=== PATIENT | male | born 1955 | race Caucasian/White ===

== ENCOUNTER 2017-05-28 04:46 | Emergency (ER) | payer OTHER ==
[~2017-05-28] VITALS: Ht 165.1 cm; Wt 101.5 kg
[~2017-05-28 04:46] MED LIST: AMLO5TAB2 PO; ASPI81CH CHEW; FENO160T PO; LOVA40TA PO
[2017-05-28] MEDS ORDERED: IOHEXOL 350 MG/ML 10 ML VIAL (for RAD DIAG) IVCONTRAST ONE (04:47)
[2017-05-28 04:52] VITALS: BP 151/85; PULSE 65; RESP 24; TEMP 97.7; O2SAT 98
[2017-05-28] MEDS ORDERED: SODIUM CHLORIDE 0.9% FLUSH 10 ML FLUSH IV FLUSH PRN (05:30)
--- NOTE | 2017-05-28 05:35 | PD ---
HPI Chief Complaint: Abdominal Pain Time Seen by Provider: 05:27 Travel History International Travel<30 days: No Contact w/Intl Traveler<30days: No Traveled to known affect area: No History of Present Illness HPI 62-year-old male presents to the emergency department complaining of severe right-sided abdominal pain since 3 AM. Patient states that he did eat fried foods last evening. Patient states that he was diagnosed with a gallstone back in June 2016. Patient states she did follow up with her general surgeon who did an ultrasound no GALLSTONES were identified at that time. Patient rates pain as 8/10 intensity. Pain is nonradiating. Patient does not report nausea or vomiting. Patient denies chest pain or shortness of breath. PFSH Past Medical History Narrative Medical Arthritis lymphoma dyslipidemia CAD hypertension CABG appendectomy alcohol use; nursing notes reviewed Arthritis: Yes (RT ELBOW) Blood Disorders: No Heart Rhythm Problems: No Cancer: Yes (LYPHOMA) Cardiac Catheterization: No Cardiovascular Problems: Yes High Cholesterol: Yes Chest Pain: Yes Congestive Heart Failure: No Diabetes: No Diminished Hearing: No Endocrine: No Gastrointestinal Disorders: No Genitourinary: No Hypertension: Yes Immune Disorder: No Implanted Vascular Access Dvce: No Musculoskeletal: No Neurologic: No Psychiatric: No Reproductive: No Respiratory: No Immunizations Current: Yes ?: Not Past Surgical History Appendectomy: Yes Coronary Artery Bypass Graft: Yes Thoracic Surgery: Yes (HEART BYPASS) Other Surgery: Yes (APPENDECTOMY) Social History Alcohol Use: Yes (OCCASIONALLY) Tobacco Use: No Substance Use: No Allergies-Medications (Allergen,Severity, Reaction): Coded Allergies: acetaminophen (Unverified Adverse Reaction, Mild, 05/22/17) keeps him awake codeine (Unverified Adverse Reaction, Mild, 05/22/17) keeps him awake hydrocodone (Unverified Adverse Reaction, Mild, 05/22/17) keeps him awake Reported Meds & Prescriptions Reported Meds & Active Scripts Active Reported Aspirin 81 Mg Chew 81 Mg CHEW DAILY Fenofibrate 160 Mg Tab 160 Mg PO DAILY Amlodipine (Amlodipine Besylate) 5 Mg Tab 5 Mg PO DAILY Lovastatin 40 Mg Tab 40 Mg PO DAILY Review of Systems Except as stated in HPI: all other systems reviewed are Neg Physical Exam Narrative GENERAL: Well-developed well-nourished male in no respiratory distress in obvious discomfort moaning and rubbing his abdomen SKIN: Warm and dry. HEAD: Normocephalic. EYES: No scleral icterus. No injection or drainage. NECK: Supple, trachea midline. No JVD or lymphadenopathy. CARDIOVASCULAR: Regular rate and rhythm without murmurs, gallops, or rubs. RESPIRATORY: Breath sounds equal bilaterally. No accessory muscle use. GASTROINTESTINAL: Abdomen soft, right lower quadrant greater than right upper quadrant tenderness to palpation without guarding or rebound, nondistended. MUSCULOSKELETAL: No cyanosis, or edema. BACK: Nontender without obvious deformity. No CVA tenderness. Data Data Last Documented VS Vital Signs Date Time Temp Pulse Resp B/P (MAP) Pulse Ox O2 Delivery O2 Flow Rate FiO2 05/28/17 06:22 63 156/91 (112) 99 Room Air 05/28/17 06:00 18 05/28/17 04:52 97.7 Orders Orders Complete Blood Count With Diff (05/28/17 05:27) Comprehensive Metabolic Panel (05/28/17 05:27) Lipase (05/28/17 05:27) Urinalysis - C+S If Indicated (05/28/17 05:27) Ct Abd/Pel W Iv Contrast(Rout) (05/28/17 05:27) Iv Access Insert/Monitor (05/28/17 05:27) Ecg Monitoring (05/28/17 05:27) Oximetry (05/28/17 05:27) Sodium Chloride 0.9% Flush (Ns Flush) (05/28/17 05:30) Electrocardiogram (05/28/17 05:27) Hydromorphone Pf Inj (Dilaudid Pf Inj) (05/28/17 05:45) Ondansetron Inj (Zofran Inj) (05/28/17 05:45) Troponin I (05/28/17 06:04) Iohexol 350 Inj (Omnipaque 350 Inj) (05/28/17 04:47) Labs Laboratory Tests Test 05/28/17 06:00 05/28/17 06:40 White Blood Count 6.1 TH/MM3 Red Blood Count 5.14 MIL/MM3 Hemoglobin 14.6 GM/DL Hematocrit 44.2 % Mean Corpuscular Volume 86.0 FL Mean Corpuscular Hemoglobin 28.5 PG Mean Corpuscular Hemoglobin Concent 33.1 % Red Cell Distribution Width 13.4 % Platelet Count 198 TH/MM3 Mean Platelet Volume 8.4 FL Neutrophils (%) (Auto) 61.4 % Lymphocytes (%) (Auto) 25.5 % Monocytes (%) (Auto) 9.4 % Eosinophils (%) (Auto) 3.1 % Basophils (%) (Auto) 0.6 % Neutrophils # (Auto) 3.7 TH/MM3 Lymphocytes # (Auto) 1.6 TH/MM3 Monocytes # (Auto) 0.6 TH/MM3 Eosinophils # (Auto) 0.2 TH/MM3 Basophils # (Auto) 0.0 TH/MM3 CBC Comment DIFF FINAL Differential Comment Blood Urea Nitrogen 17 MG/DL Creatinine 1.30 MG/DL Random Glucose 141 MG/DL Total Protein 7.1 GM/DL Albumin 3.7 GM/DL Calcium Level 9.0 MG/DL Alkaline Phosphatase 76 U/L Aspartate Amino Transf (AST/SGOT) 39 U/L Alanine Aminotransferase (ALT/SGPT) 55 U/L Total Bilirubin 0.6 MG/DL Sodium Level 141 MEQ/L Potassium Level 3.7 MEQ/L Chloride Level 107 MEQ/L Carbon Dioxide Level 25.5 MEQ/L Anion Gap 9 MEQ/L Estimat Glomerular Filtration Rate 56 ML/MIN Troponin I LESS THAN 0.02 NG/ML Lipase 178 U/L Urine Collection Type CLEAN CATCH Urine Color YELLOW Urine Turbidity CLEAR Urine pH 7.0 Urine Specific [place] 1.014 Urine Protein NEG mg/dL Urine Glucose (UA) NEG mg/dL Urine Ketones NEG mg/dL Urine Occult Blood NEG Urine Nitrite NEG Urine Bilirubin NEG Urine Leukocyte Esterase NEG Urine Squamous Epithelial Cells 0-5 /hpf Urine Amorphous Sediment MOD Microscopic Urinalysis Comment CULT NOT INDICATED Urine Collection Time 0640 MDM Medical Decision Making Medical Screen Exam Complete: Yes Emergency Medical Condition: Yes Medical Record Reviewed: Yes Interpretation(s) EKGs has bradycardia rate [address] elevation nonspecific ST segment flattening inferiorly and anteriorly in V4 V5 Differential Diagnosis abdominal pain cholecystitis choledocholithiasis pancreatitis diverticulitis perforated viscus abdominal aortic aneurysm ischemic colitis atypical chest pain ACS NV Narrative Course IV access obtained specimens collected and sent for resulting patient ordered Dilaudid 1 mg IV along with Zofran 4 mg IV @ 6:30 pain free care signed over to Lashawn Cornejo MD May 28, 2017 05:35
[2017-05-28] MEDS ORDERED: ONDANSETRON HCL 4 MG/2 ML VIAL IV PUSH ONE (05:45)
[2017-05-28] MEDS ORDERED: HYDROmorphone HCL PF 1 MG/ML VIAL IV PUSH ONE (05:45)
[2017-05-28 06:00] VITALS: BP 141/93; PULSE 78; RESP 18
[2017-05-28 06:15] LABS: AUTOMATED NEUTROPHIL # 3.7 TH/MM3 (1.8-7.7); BASOPHIL % 0.6 % (0.0-2.0); EOSINOPHIL # 0.2 TH/MM3 (0-0.4); EOSINOPHIL % 3.1 % (0.0-4.0); HEMATOCRIT 44.2 % (39.0-51.0); HEMO FLAGS DIFF FINAL; LYMPH % 25.5 % (9.0-44.0); LYMPHOCYTE # 1.6 TH/MM3 (1.0-4.8); MEAN CORPUSCULAR HEMOGLOBIN 28.5 PG (27.0-34.0); MEAN CORPUSCULAR HGB CONC 33.1 % (32.0-36.0); MONO % 9.4 % (0.0-8.0); NEUT % 61.4 % (16.0-70.0); PLATELET COUNT 198 TH/MM3 (150-450); RED BLOOD COUNT 5.14 MIL/MM3 (4.50-5.90); RED CELL DISTRIBUTION WIDTH 13.4 % (11.6-17.2); WHITE BLOOD COUNT 6.1 TH/MM3 (4.0-11.0)
[2017-05-28 06:22] VITALS: BP 156/91; PULSE 63; O2SAT 99
[2017-05-28 06:23] LABS: CHLORIDE 107 MEQ/L (98-107); POTASSIUM 3.7 MEQ/L (3.5-5.1); SODIUM (NA) 141 MEQ/L (136-145)
[2017-05-28 06:27] LABS: ANION GAP 9 MEQ/L (5-15); BICARBONATE 25.5 MEQ/L (21.0-32.0); BLOOD UREA NITROGEN 17 MG/DL (7-18)
[2017-05-28 06:29] LABS: ALT (GPT) 55 U/L (12-78)
[2017-05-28 06:30] LABS: AST (GOT) 39 U/L (15-37); GLOMERULAR FILTRATION RATE 56 ML/MIN (>89)
[2017-05-28 06:31] LABS: TOTAL BILIRUBIN ADULT 0.6 MG/DL (0.2-1.0)
[2017-05-28 06:32] LABS: ALKALINE PHOSPHATASE 76 U/L (45-117)
[2017-05-28 06:50] LABS: BLOOD, URINE NEG (NEG); GLUCOSE,URINE NEG (NEG); KETONE, URINE NEG (NEG); NITRITE,URINE NEG (NEG)
[2017-05-28 06:51] LABS: METHOD OF COLLECTION CLEAN CATCH; URINE COLOR YELLOW (YELLW/STRAW)
[2017-05-28 06:55] LABS: CULTURE IF INDICATED CULT NOT INDICATED; SQUAMOUS EPITHELIAL CELL URINE 0-5 /hpf (0-5)
[2017-05-28 06:56] LABS: COMMENT (UR) CULT NOT INDICATED
--- NOTE | 2017-05-28 07:25 | RADRPT ---
EXAM DATE/TIME: 05/28/2017 06:54 [facility] COMPARISON: CT ABDOMEN & PELVIS W CONTRAST, June 11, 2016, 3:59. INDICATIONS : Right upper quadrant pain. IV CONTRAST: 70 cc Omnipaque 350 (iohexol) IV ORAL CONTRAST: No oral contrast ingested. RADIATION DOSE: 20.46 CTDIvol (mGy) MEDICAL HISTORY : Cardiovascular disease. Lymphoma. SURGICAL HISTORY : CABG Appendectomy. ENCOUNTER: Initial ACUITY: 2 days PAIN SCALE: 4/10 LOCATION: Right upper quadrant TECHNIQUE: Volumetric scanning of the abdomen and pelvis was performed. Using automated exposure control and ad justment of the mA and/or kV according to patient size, radiation dose was kept as low as reasonably achievable to obtain optimal diagnostic quality images. DICOM format image data is available electro nically for review and comparison. FINDINGS: LOWER LUNGS: The visualized lower lungs are clear. Mild chronic interstitial lung disease LIVER: Homogeneous density without lesion. There is no dilation of the biliary tree. Gallbladder is seen a s a luminal structure without wall thickening. There is a 2 or 3 mm solitary stone near the neck of t he gallbladder. SPLEEN: Normal size without lesion. PANCREAS: Within normal limits. KIDNEYS: Normal in size and shape. There is no mass, stone or hydronephrosis. ADRENAL GLANDS: Within normal limits. VASCULAR: There is no aortic aneurysm. BOWEL/MESENTERY: The stomach, small bowel, and colon demonstrate no acute abnormality. There is no free intraperitone al air or fluid. Few loops of upper abdominal small bowel duodenum and/or adjacent jejunum mildly dil ated which could represents a upper abdominal ileus. Small right fracture and hernia. ABDOMINAL WALL: Within normal limits. RETROPERITONEUM: There is no lymphadenopathy. BLADDER: No wall thickening or mass. REPRODUCTIVE: Within normal limits. INGUINAL: There is no lymphadenopathy or hernia. MUSCULOSKELETAL: Within normal limits for patient age. Facet arthritic changes lower lumbar spine. Evidence of prior m edian sternotomy and lower chest. CONCLUSION: 2 mm solitary gallstone in neck of gallbladder. Small hiatal hernia. Few loops of proximal small bowel mildly dilated proba fab representing an ileus without obstructive lesion Max Birmingham MD on May 28, 2017 at 7:17 Board Certified Radiologist. This report was verified electronically.
--- NOTE | 2017-05-28 07:43 | EKG ---
Date Performed: 05/28/2017 Time Performed: 05:48:27 PTAGE: 62 years EKG: SINUS BRADYCARDIA LOW QRS VOLTAGE IN PRECORDIAL LEADS NONSPECIFIC T WAVE ABNORMALITIES ABNO RMAL ECG PREVIOUS TRACING : 06/11/2016 02.59 No significant change from previous tracing noted. DOCTOR: Delta Burks Interpretating Date/Time 05/28/2017 07:43:12
[2017-05-28] MEDS ORDERED: ZOFR4TAB PO (08:06)
[2017-05-28] MEDS ORDERED: PERC5TAB12 PO (08:06)
--- NOTE | 2017-05-28 08:10 | PD ---
Data Data Last Documented VS Vital Signs Date Time Temp Pulse Resp B/P (MAP) Pulse Ox O2 Delivery O2 Flow Rate FiO2 05/28/17 06:22 63 156/91 (112) 99 Room Air 05/28/17 06:00 18 05/28/17 04:52 97.7 Orders Orders Complete Blood Count With Diff (05/28/17 05:27) Comprehensive Metabolic Panel (05/28/17 05:27) Lipase (05/28/17 05:27) Urinalysis - C+S If Indicated (05/28/17 05:27) Ct Abd/Pel W Iv Contrast(Rout) (05/28/17 05:27) Iv Access Insert/Monitor (05/28/17 05:27) Ecg Monitoring (05/28/17 05:27) Oximetry (05/28/17 05:27) Sodium Chloride 0.9% Flush (Ns Flush) (05/28/17 05:30) Electrocardiogram (05/28/17 05:27) Hydromorphone Pf Inj (Dilaudid Pf Inj) (05/28/17 05:45) Ondansetron Inj (Zofran Inj) (05/28/17 05:45) Troponin I (05/28/17 06:04) Iohexol 350 Inj (Omnipaque 350 Inj) (05/28/17 04:47) Labs Laboratory Tests Test 05/28/17 06:00 05/28/17 06:40 White Blood Count 6.1 TH/MM3 Red Blood Count 5.14 MIL/MM3 Hemoglobin 14.6 GM/DL Hematocrit 44.2 % Mean Corpuscular Volume 86.0 FL Mean Corpuscular Hemoglobin 28.5 PG Mean Corpuscular Hemoglobin Concent 33.1 % Red Cell Distribution Width 13.4 % Platelet Count 198 TH/MM3 Mean Platelet Volume 8.4 FL Neutrophils (%) (Auto) 61.4 % Lymphocytes (%) (Auto) 25.5 % Monocytes (%) (Auto) 9.4 % Eosinophils (%) (Auto) 3.1 % Basophils (%) (Auto) 0.6 % Neutrophils # (Auto) 3.7 TH/MM3 Lymphocytes # (Auto) 1.6 TH/MM3 Monocytes # (Auto) 0.6 TH/MM3 Eosinophils # (Auto) 0.2 TH/MM3 Basophils # (Auto) 0.0 TH/MM3 CBC Comment DIFF FINAL Differential Comment Blood Urea Nitrogen 17 MG/DL Creatinine 1.30 MG/DL Random Glucose 141 MG/DL Total Protein 7.1 GM/DL Albumin 3.7 GM/DL Calcium Level 9.0 MG/DL Alkaline Phosphatase 76 U/L Aspartate Amino Transf (AST/SGOT) 39 U/L Alanine Aminotransferase (ALT/SGPT) 55 U/L Total Bilirubin 0.6 MG/DL Sodium Level 141 MEQ/L Potassium Level 3.7 MEQ/L Chloride Level 107 MEQ/L Carbon Dioxide Level 25.5 MEQ/L Anion Gap 9 MEQ/L Estimat Glomerular Filtration Rate 56 ML/MIN Troponin I LESS THAN 0.02 NG/ML Lipase 178 U/L Urine Collection Type CLEAN CATCH Urine Color YELLOW Urine Turbidity CLEAR Urine pH 7.0 Urine Specific [place] 1.014 Urine Protein NEG mg/dL Urine Glucose (UA) NEG mg/dL Urine Ketones NEG mg/dL Urine Occult Blood NEG Urine Nitrite NEG Urine Bilirubin NEG Urine Leukocyte Esterase NEG Urine Squamous Epithelial Cells 0-5 /hpf Urine Amorphous Sediment MOD Microscopic Urinalysis Comment CULT NOT INDICATED Urine Collection Time 0640 [facility] Supervised Visit with KERRY: No Narrative Course This case is checked out to me by Dr. Santos at 7 AM. This patient developed some abdominal discomfort around 3 AM. It was fairly severe when it started but is much improved at this point. He still has some upper abdominal discomfort and bloating. No vomiting or fever or diarrhea or constipation. He had a normal bowel movement this morning. I reviewed the entirety of the workup with the patient and answered their questions. His CBC metabolic profile and LFTs and lipase are all normal CT scan reveals a 2 mm gallstone but no findings of cholecystitis. More likely the cause of his discomfort is mild ileus-type findings with some dilation of some upper abdominal intestines. There is no obstruction. He has a soft benign nontender abdomen I offered him hospitalization for symptom relief and bowel rest but he declines. He wants to go home. I think it is reasonable given the findings. We discussed her narcotics are not prime treatment for ileus but I did write a few Percocet just in case and some Zofran to use if needed. He is called his primary physician from the ER and they will see him tomorrow morning. We discussed GI follow-up. If he has significant worsening he will return. I don't think his gallstone is the cause of his pain. Diagnosis Primary Impression: Ileus Additional Impression: Abdominal pain Qualified Codes: R10.10 - Upper abdominal pain, unspecified Patient Instructions: General Instructions Departure Forms: Tests/Procedures Additional Instruction: The patient was advised to follow up with their physician and return if they worsen. The patient was warned about potential sedation for the medications they will receive on prescription. I have recommended clear liquids for 24 hours, then gradually advance as tolerated. Med/Other Pt SpecificInfo: Prescription(s) given Scripts Ondansetron (Zofran) 4 Mg Tab 4 MG PO Q6HR Y for NAUSEA OR VOMITING, #10 TAB 0 Refills Prov: Josue Nugent MD 05/28/17 Oxycodone-Acetaminophen (Percocet) 5-325 mg Tab 1 TAB PO Q6H Y for PAIN, #15 TAB 0 Refills Prov: Josue Nugent MD 05/28/17 Disposition: 01 DISCHARGE HOME Condition: Stable Josue Nugent MD May 28, 2017 08:10
[2017-05-28 08:20] VITALS: BP 145/96; PULSE 68; RESP 18; O2SAT 95
== END 2017-05-28 08:20 | disposition home or self-care (01) ==
LOC: PHED 04:46
DX: K56.7 Ileus, unspecified (principal); R00.1 Bradycardia, unspecified; E78.5 Hyperlipidemia, unspecified
CPT/HCPCS: 74177; 80053; 81001; 83690; 84484; 85025; 93005; 96374; 96375; 99285; J1170; J2405; Q9967